=== PATIENT | male | born 1965 | race African-American/Black ===

== ENCOUNTER 2022-03-29 19:11 | Inpatient (IN) | payer OTHER ==
[2022-03-30] MEDS ORDERED: LOPERAMIDE HCL 2 MG CAPSULE PO PRN (00:03)
[2022-03-30] MEDS ORDERED: IBUPROFEN 600 MG TABLET (FP) PO PRN (00:03)
[2022-03-30] MEDS ORDERED: BENZOCAINE/MENTHOL (CHLORASEPTIC ) LOZENGE MM PRN (00:03)
[2022-03-30] MEDS ORDERED: NICOTINE POLACRILEX 2 MG GUM BUC PRN (00:03)
[2022-03-30] MEDS ORDERED: MAGNESIUM CITRATE 300 ML BOTTLE PO PRN (00:03)
[2022-03-30] MEDS ORDERED: guaiFENesin 200 MG/10 ML 10 ML UNIT-DOSE CUPS PO PRN (00:03)
[2022-03-30] MEDS ORDERED: MAGNESIUM HYDROX 2400MG/30ML ORAL SUSPENSION 30 ML CUP PO PRN (00:03)
[2022-03-30] MEDS ORDERED: DICYCLOMINE HCL 10 MG CAPSULE PO PRN (00:03)
[2022-03-30] MEDS ORDERED: BISMUTH SUBSALICYLATE 524 MG/30 ML PO PRN (00:03)
[2022-03-30] MEDS ORDERED: ACETAMINOPHEN 325 MG TABLET (FP) PO PRN ×2 (00:03)
[2022-03-30] MEDS ORDERED: ONDANSETRON *ODT* 4 MG TABLET SL PRN (00:03)
[2022-03-30] MEDS ORDERED: NALOXONE HCL (KLOXXADO) 8 MG SPRAY NS PRN (00:03)
[2022-03-30] MEDS ORDERED: P-EPHED 60MG/TRIPROLIDI 2.5MG TABLET PO PRN (00:03)
[2022-03-30] MEDS ORDERED: MAG HYDROX/AL HYDROX/SIMETH 30 ML UNIT-DOSE CUP PO PRN (00:03)
[2022-03-30] MEDS ORDERED: IBUPROFEN 400 MG TABLET (FP) PO PRN (00:03)
[2022-03-30 00:25] VITALS: BMI 24.3
[2022-03-30] MEDS ORDERED: chlordiazePOXIDE HCL 25 MG CAPSULE ONE (01:00)
[2022-03-30] MEDS: chlordiazePOXIDE HCL 25 MG CAPSULE PO PRN ×2 (01:04→13:05)
[2022-03-30] MEDS: chlordiazePOXIDE HCL 25 MG CAPSULE PO SCH ×4 (05:42→22:12)
[2022-03-30] MEDS: hydrOXYzine PAMOATE 25 MG CAPSULE (FP) PO PRN ×2 (10:19→13:04)
[2022-03-30] MEDS: NICOTINE 21 MG/24 HOURS TOPICAL PATCH TD SCH (10:19)
[2022-03-30] MEDS: PRENATAL VITAMINS W/ FOLIC ACID TABLET (FP) PO SCH (10:19)
[2022-03-30 11:07] LABS: HEMATOCRIT 37.7 % (35.4-49); HEMOGLOBIN 12.9 GM/dL (11.7-16.9); MCH 30.9 pg (25.7-33.7); MCHC 34.3 g/dl (32.0-35.9); MEAN PLT VOLUME 7.4 fl (7.5-11.1); PLATELET COUNT 272 10^3/uL (134-434); RBC 4.19 M/mm3 (4.00-5.60)
[2022-03-30 11:21] LABS: ALBUMIN 3.6 g/dl (3.4-5.0); BLOOD UREA NITROGEN 18.6 mg/dL (7-18)
[2022-03-30 11:25] LABS: BILIRUBIN,TOTAL 0.6 mg/dL (0.2-1); TOT PROT 6.4 g/dl (6.4-8.2)
[2022-03-30] MEDS ORDERED: PNEUMOC 20-VAL CONJ-DIP CRM/PF 0.5 ML SYRINGE IM ONE (12:00)
[2022-03-30] MEDS ORDERED: FLU VACC QS2022-23(6MOS UP)/PF 60 MCG/0.5 ML SYRINGE IM ONE (12:00)
[2022-03-30 12:20] LABS: HIV INTERPRETATION NEGATIVE (NEGATIVE)
[2022-03-30] MEDS ORDERED: cloNIDine HCL 0.1 MG TABLET PO ONE (12:50)
[2022-03-30] MEDS: THIAMINE HCL 100 MG TABLET (FP) PO SCH (22:12)
[2022-03-30] MEDS: MELATONIN 5 MG TABLETS PO SCH (22:12)
[2022-03-31] MEDS: chlordiazePOXIDE HCL 25 MG CAPSULE PO SCH ×4 (05:36→22:08)
[2022-03-31] MEDS: PRENATAL VITAMINS W/ FOLIC ACID TABLET (FP) PO SCH (10:03)
[2022-03-31] MEDS: NICOTINE 21 MG/24 HOURS TOPICAL PATCH TD SCH (10:04)
[2022-03-31] MEDS: hydrOXYzine PAMOATE 25 MG CAPSULE (FP) PO PRN (10:04)
[2022-03-31 18:52] LABS: PH,URINE 6.5 (5.0-8.0); URINE APPEARANCE CLEAR; URINE BILIRUBIN NEGATIVE (NEGATIVE); URINE COLOR YELLOW; URINE GLUCOSE (UA) NEGATIVE (NEGATIVE); URINE KETONE NEGATIVE (NEGATIVE); URINE LEUK ESTERASE NEGATIVE (NEGATIVE); URINE NITRITE NEGATIVE (NEGATIVE); URINE PROTEIN NEGATIVE (NEGATIVE); URINE UROBILINOGEN 0.2 mg/dL (0.2-1.0)
[2022-03-31] MEDS: MELATONIN 5 MG TABLETS PO SCH (22:08)
[2022-03-31] MEDS: THIAMINE HCL 100 MG TABLET (FP) PO SCH (22:08)
[2022-04-01] MEDS ORDERED: chlordiazePOXIDE HCL 10 MG CAPSULE PO PRN
[2022-04-01] MEDS: hydrOXYzine PAMOATE 25 MG CAPSULE (FP) PO PRN ×2 (06:14→10:32)
[2022-04-01] MEDS: chlordiazePOXIDE HCL 10 MG CAPSULE PO SCH ×4 (06:30→22:16)
[2022-04-01] MEDS: PRENATAL VITAMINS W/ FOLIC ACID TABLET (FP) PO SCH (10:32)
[2022-04-01] MEDS: METHOCARBAMOL 500 MG TABLET PO PRN (10:32)
[2022-04-01] MEDS: NICOTINE 21 MG/24 HOURS TOPICAL PATCH TD SCH (10:32)
[2022-04-01] MEDS: THIAMINE HCL 100 MG TABLET (FP) PO SCH (22:16)
[2022-04-01] MEDS: MELATONIN 5 MG TABLETS PO SCH (22:17)
[2022-04-01] MEDS ORDERED: LISINOPRIL 5 MG TABLET PO ONE (23:44)
[2022-04-02] MEDS: chlordiazePOXIDE HCL 10 MG CAPSULE PO SCH ×2 (05:56→17:31)
[2022-04-02] MEDS: NICOTINE 21 MG/24 HOURS TOPICAL PATCH TD SCH (10:23)
[2022-04-02] MEDS: PRENATAL VITAMINS W/ FOLIC ACID TABLET (FP) PO SCH (10:23)
[2022-04-02] MEDS: hydrOXYzine PAMOATE 25 MG CAPSULE (FP) PO PRN (22:17)
[2022-04-02] MEDS: THIAMINE HCL 100 MG TABLET (FP) PO SCH (22:17)
[2022-04-02] MEDS: MELATONIN 5 MG TABLETS PO SCH (22:17)
[2022-04-02] MEDS: METHOCARBAMOL 500 MG TABLET PO PRN (22:17)
[2022-04-03] MEDS ORDERED: chlordiazePOXIDE HCL 10 MG CAPSULE PO ONE (05:00)
[2022-04-03] MEDS: PRENATAL VITAMINS W/ FOLIC ACID TABLET (FP) PO SCH (10:00)
[2022-04-03] MEDS: NICOTINE 21 MG/24 HOURS TOPICAL PATCH TD SCH (10:01)
[2022-04-03 10:55] VITALS: RESP 18
[2022-04-03 12:45] VITALS: BP 151/104; PULSE 86; TEMP 98.2
== END 2022-04-03 15:21 | DRG 775 ==
LOC: YASAS 19:11 → Y3N 03-30 02:04
PROVIDERS: ADMIT Allergy & Immunology; ATTEND Allergy & Immunology
PROC: HZ2ZZZZ Detoxification Services for Substance Abuse Treatment (ICD-10-PCS; principal; 2022-03-30)
DX: F10.230 Alcohol dependence with withdrawal, uncomplicated (principal); F12.20 Cannabis dependence, uncomplicated; F17.210 Nicotine dependence, cigarettes, uncomplicated; F19.282 Other psychoactive substance dependence with psychoactive substance-induced sleep disorder; F19.24 Other psychoactive substance dependence with psychoactive substance-induced mood disorder; E78.5 Hyperlipidemia, unspecified; I10 Essential (primary) hypertension; M54.50 Low back pain, unspecified; G89.29 Other chronic pain; Z87.19 Personal history of other diseases of the digestive system
CPT/HCPCS: 36415; 80053; 81003; 85027; 86780; 87389; 87811; 90677; 93005; 93010; C9803-CS; G0008; Q2036; U0003; U0005

== ENCOUNTER 2022-04-03 15:21 | Inpatient (IN) | payer OTHER ==
[2022-04-03] MEDS ORDERED: NICOTINE POLACRILEX 4 MG GUM BUC PRN (16:04)
[2022-04-03] MEDS ORDERED: ACETAMINOPHEN 325 MG TABLET (FP) PO PRN (16:04)
[2022-04-03] MEDS ORDERED: MAGNESIUM HYDROX 2400MG/30ML ORAL SUSPENSION 30 ML CUP PO PRN (16:04)
[2022-04-03] MEDS ORDERED: LOPERAMIDE HCL 2 MG CAPSULE PO PRN (16:04)
[2022-04-03] MEDS ORDERED: guaiFENesin 200 MG/10 ML 10 ML UNIT-DOSE CUPS PO PRN (16:04)
[2022-04-03] MEDS ORDERED: MAGNESIUM CITRATE 300 ML BOTTLE PO PRN (16:04)
[2022-04-03] MEDS ORDERED: IBUPROFEN 400 MG TABLET (FP) PO PRN (16:04)
[2022-04-03] MEDS ORDERED: NICOTINE 10 MG CARTRIDGE (INHALER) IH PRN (16:04)
[2022-04-03] MEDS ORDERED: P-EPHED 60MG/TRIPROLIDI 2.5MG TABLET PO PRN (16:04)
[2022-04-03] MEDS ORDERED: MAG HYDROX/AL HYDROX/SIMETH 30 ML UNIT-DOSE CUP PO PRN (16:04)
[2022-04-03] MEDS: cloNIDine HCL 0.1 MG TABLET PO PRN (16:50)
[2022-04-03] MEDS: hydrOXYzine PAMOATE 25 MG CAPSULE (FP) PO SCH ×2 (17:50→21:46)
[2022-04-03] MEDS: THIAMINE HCL 100 MG TABLET (FP) PO SCH (21:46)
[2022-04-03] MEDS: MELATONIN 5 MG TABLETS PO SCH (21:46)
[2022-04-04] MEDS: hydrOXYzine PAMOATE 25 MG CAPSULE (FP) PO SCH ×2 (06:28→09:39)
[2022-04-04] MEDS: NICOTINE 7 MG/24 HOURS TOPICAL PATCH TD SCH (09:37)
[2022-04-04] MEDS: LISINOPRIL 5 MG TABLET PO SCH (09:38)
[2022-04-04] MEDS: PRENATAL VITAMINS W/ FOLIC ACID TABLET (FP) PO SCH (09:38)
[2022-04-04] MEDS: FAMOTIDINE 20 MG TABLET PO SCH (09:38)
[2022-04-04] MEDS: cloNIDine HCL 0.1 MG TABLET PO PRN (09:39)
[2022-04-04 16:58] LABS: URINE APPEARANCE CLEAR; URINE BILIRUBIN NEGATIVE (NEGATIVE); URINE COLOR YELLOW; URINE GLUCOSE (UA) NEGATIVE (NEGATIVE); URINE KETONE NEGATIVE (NEGATIVE); URINE LEUK ESTERASE NEGATIVE (NEGATIVE); URINE NITRITE NEGATIVE (NEGATIVE); URINE PROTEIN NEGATIVE (NEGATIVE); URINE UROBILINOGEN 0.2 mg/dL (0.2-1.0)
[2022-04-04] MEDS: MELATONIN 5 MG TABLETS PO SCH (21:26)
[2022-04-04] MEDS: THIAMINE HCL 100 MG TABLET (FP) PO SCH (21:26)
[2022-04-05] MEDS: FAMOTIDINE 20 MG TABLET PO SCH (09:55)
[2022-04-05] MEDS: NICOTINE 7 MG/24 HOURS TOPICAL PATCH TD SCH (09:56)
[2022-04-05] MEDS: PRENATAL VITAMINS W/ FOLIC ACID TABLET (FP) PO SCH (09:56)
[2022-04-05] MEDS: LISINOPRIL 5 MG TABLET PO SCH (09:56)
[2022-04-05] MEDS: MELATONIN 5 MG TABLETS PO SCH (21:22)
[2022-04-05] MEDS: THIAMINE HCL 100 MG TABLET (FP) PO SCH (21:22)
[2022-04-06] MEDS: NICOTINE 7 MG/24 HOURS TOPICAL PATCH TD SCH (09:45)
[2022-04-06] MEDS: PRENATAL VITAMINS W/ FOLIC ACID TABLET (FP) PO SCH (09:45)
[2022-04-06] MEDS: LISINOPRIL 5 MG TABLET PO SCH (09:45)
[2022-04-06] MEDS: FAMOTIDINE 20 MG TABLET PO SCH (09:45)
[2022-04-06] MEDS: cloNIDine HCL 0.1 MG TABLET PO PRN ×2 (11:59→21:46)
[2022-04-06] MEDS: hydrOXYzine PAMOATE 25 MG CAPSULE (FP) PO PRN (21:46)
[2022-04-06] MEDS: THIAMINE HCL 100 MG TABLET (FP) PO SCH (21:47)
[2022-04-06] MEDS: MELATONIN 5 MG TABLETS PO SCH (21:47)
[2022-04-07] MEDS: FAMOTIDINE 20 MG TABLET PO SCH (09:47)
[2022-04-07] MEDS: PRENATAL VITAMINS W/ FOLIC ACID TABLET (FP) PO SCH (09:47)
[2022-04-07] MEDS: LISINOPRIL 5 MG TABLET PO SCH (09:47)
[2022-04-07] MEDS: NICOTINE 7 MG/24 HOURS TOPICAL PATCH TD SCH (09:48)
[2022-04-07] MEDS: cloNIDine HCL 0.1 MG TABLET PO PRN (21:26)
[2022-04-07] MEDS: hydrOXYzine PAMOATE 25 MG CAPSULE (FP) PO PRN (21:26)
[2022-04-07] MEDS: THIAMINE HCL 100 MG TABLET (FP) PO SCH (21:26)
[2022-04-07] MEDS: MELATONIN 5 MG TABLETS PO SCH (21:27)
[2022-04-08] MEDS: NICOTINE 7 MG/24 HOURS TOPICAL PATCH TD SCH (09:35)
[2022-04-08] MEDS: FAMOTIDINE 20 MG TABLET PO SCH (09:35)
[2022-04-08] MEDS: LISINOPRIL 5 MG TABLET PO SCH (09:35)
[2022-04-08] MEDS: PRENATAL VITAMINS W/ FOLIC ACID TABLET (FP) PO SCH (09:36)
[2022-04-08] MEDS: MELATONIN 5 MG TABLETS PO SCH (21:13)
[2022-04-08] MEDS: THIAMINE HCL 100 MG TABLET (FP) PO SCH (21:13)
[2022-04-09] MEDS: NICOTINE 7 MG/24 HOURS TOPICAL PATCH TD SCH (09:46)
[2022-04-09] MEDS: FAMOTIDINE 20 MG TABLET PO SCH (09:47)
[2022-04-09] MEDS: LISINOPRIL 5 MG TABLET PO SCH (09:47)
[2022-04-09] MEDS: PRENATAL VITAMINS W/ FOLIC ACID TABLET (FP) PO SCH (09:47)
[2022-04-09] MEDS: MELATONIN 5 MG TABLETS PO SCH (21:07)
[2022-04-09] MEDS: THIAMINE HCL 100 MG TABLET (FP) PO SCH (21:07)
[2022-04-10] MEDS: LISINOPRIL 5 MG TABLET PO SCH (09:59)
[2022-04-10] MEDS: PRENATAL VITAMINS W/ FOLIC ACID TABLET (FP) PO SCH (10:00)
[2022-04-10] MEDS: NICOTINE 7 MG/24 HOURS TOPICAL PATCH TD SCH (10:00)
[2022-04-10] MEDS: FAMOTIDINE 20 MG TABLET PO SCH (10:00)
[2022-04-10] MEDS ORDERED: MELATONIN 5 MG TABLETS PO SCH (16:30)
[2022-04-10] MEDS: THIAMINE HCL 100 MG TABLET (FP) PO SCH (21:05)
[2022-04-11] MEDS: PRENATAL VITAMINS W/ FOLIC ACID TABLET (FP) PO SCH (09:39)
[2022-04-11] MEDS: FAMOTIDINE 20 MG TABLET PO SCH (09:39)
[2022-04-11] MEDS: LISINOPRIL 5 MG TABLET PO SCH (09:39)
[2022-04-11] MEDS: NICOTINE 7 MG/24 HOURS TOPICAL PATCH TD SCH (09:39)
[2022-04-11] MEDS: THIAMINE HCL 100 MG TABLET (FP) PO SCH (21:04)
[2022-04-11] MEDS: MELATONIN 5 MG TABLETS PO SCH (21:04)
[2022-04-11] MEDS: SUVOREXANT 10 MG TABLET PO PRN (21:05)
[2022-04-12] MEDS: FAMOTIDINE 20 MG TABLET PO SCH (10:05)
[2022-04-12] MEDS: LISINOPRIL 5 MG TABLET PO SCH (10:05)
[2022-04-12] MEDS: NICOTINE 7 MG/24 HOURS TOPICAL PATCH TD SCH (10:05)
[2022-04-12] MEDS: PRENATAL VITAMINS W/ FOLIC ACID TABLET (FP) PO SCH (10:05)
[2022-04-12] MEDS: THIAMINE HCL 100 MG TABLET (FP) PO SCH (21:23)
[2022-04-12] MEDS: cloNIDine HCL 0.1 MG TABLET PO PRN (21:23)
[2022-04-12] MEDS: hydrOXYzine PAMOATE 25 MG CAPSULE (FP) PO PRN (21:23)
[2022-04-12] MEDS: SUVOREXANT 10 MG TABLET PO PRN (21:24)
[2022-04-13] MEDS: FAMOTIDINE 20 MG TABLET PO SCH (09:32)
[2022-04-13] MEDS: NICOTINE 7 MG/24 HOURS TOPICAL PATCH TD SCH (09:32)
[2022-04-13] MEDS: PRENATAL VITAMINS W/ FOLIC ACID TABLET (FP) PO SCH (09:32)
[2022-04-13] MEDS: LISINOPRIL 5 MG TABLET PO SCH (09:33)
[2022-04-13] MEDS: THIAMINE HCL 100 MG TABLET (FP) PO SCH (21:28)
[2022-04-13] MEDS: SUVOREXANT 10 MG TABLET PO PRN (21:29)
[2022-04-13] MEDS: hydrOXYzine PAMOATE 25 MG CAPSULE (FP) PO PRN (21:29)
[2022-04-14] MEDS: NICOTINE 7 MG/24 HOURS TOPICAL PATCH TD SCH (09:32)
[2022-04-14] MEDS: FAMOTIDINE 20 MG TABLET PO SCH (09:33)
[2022-04-14] MEDS: PRENATAL VITAMINS W/ FOLIC ACID TABLET (FP) PO SCH (09:33)
[2022-04-14] MEDS: LISINOPRIL 5 MG TABLET PO SCH (09:33)
[2022-04-14] MEDS: THIAMINE HCL 100 MG TABLET (FP) PO SCH (21:21)
[2022-04-14] MEDS: SUVOREXANT 10 MG TABLET PO PRN (21:21)
[2022-04-14] MEDS ORDERED: SUVOREXANT 10 MG TABLET PO PRN (22:00)
[2022-04-15] MEDS: PRENATAL VITAMINS W/ FOLIC ACID TABLET (FP) PO SCH (09:41)
[2022-04-15] MEDS: LISINOPRIL 5 MG TABLET PO SCH (09:41)
[2022-04-15] MEDS: FAMOTIDINE 20 MG TABLET PO SCH (09:41)
[2022-04-15] MEDS: NICOTINE 7 MG/24 HOURS TOPICAL PATCH TD SCH (09:42)
[2022-04-15] MEDS: THIAMINE HCL 100 MG TABLET (FP) PO SCH (21:06)
[2022-04-15] MEDS: hydrOXYzine PAMOATE 25 MG CAPSULE (FP) PO PRN (21:08)
[2022-04-16] MEDS: FAMOTIDINE 20 MG TABLET PO SCH (09:36)
[2022-04-16] MEDS: PRENATAL VITAMINS W/ FOLIC ACID TABLET (FP) PO SCH (09:36)
[2022-04-16] MEDS: LISINOPRIL 5 MG TABLET PO SCH (09:36)
[2022-04-16] MEDS: NICOTINE 7 MG/24 HOURS TOPICAL PATCH TD SCH (09:36)
[2022-04-16] MEDS: hydrOXYzine PAMOATE 25 MG CAPSULE (FP) PO PRN (21:08)
[2022-04-16] MEDS: THIAMINE HCL 100 MG TABLET (FP) PO SCH (21:08)
[2022-04-17] MEDS: PRENATAL VITAMINS W/ FOLIC ACID TABLET (FP) PO SCH (09:46)
[2022-04-17] MEDS: LISINOPRIL 5 MG TABLET PO SCH (09:46)
[2022-04-17] MEDS: FAMOTIDINE 20 MG TABLET PO SCH (09:46)
[2022-04-17] MEDS: NICOTINE 7 MG/24 HOURS TOPICAL PATCH TD SCH (09:47)
[2022-04-17] MEDS: THIAMINE HCL 100 MG TABLET (FP) PO SCH (21:06)
[2022-04-17] MEDS: hydrOXYzine PAMOATE 25 MG CAPSULE (FP) PO PRN (21:06)
[2022-04-17] MEDS: SUVOREXANT 10 MG TABLET PO PRN (21:07)
[2022-04-18] MEDS: NICOTINE 7 MG/24 HOURS TOPICAL PATCH TD SCH (10:08)
[2022-04-18] MEDS: PRENATAL VITAMINS W/ FOLIC ACID TABLET (FP) PO SCH (10:09)
[2022-04-18] MEDS: LISINOPRIL 5 MG TABLET PO SCH (10:09)
[2022-04-18] MEDS: FAMOTIDINE 20 MG TABLET PO SCH (10:09)
[2022-04-18] MEDS: hydrOXYzine PAMOATE 25 MG CAPSULE (FP) PO PRN (21:09)
[2022-04-18] MEDS: SUVOREXANT 10 MG TABLET PO PRN (21:09)
[2022-04-18] MEDS: THIAMINE HCL 100 MG TABLET (FP) PO SCH (21:09)
[2022-04-19] MEDS: LISINOPRIL 5 MG TABLET PO SCH (09:40)
[2022-04-19] MEDS: NICOTINE 7 MG/24 HOURS TOPICAL PATCH TD SCH (09:40)
[2022-04-19] MEDS: PRENATAL VITAMINS W/ FOLIC ACID TABLET (FP) PO SCH (09:40)
[2022-04-19] MEDS: FAMOTIDINE 20 MG TABLET PO SCH (09:40)
[2022-04-19] MEDS ORDERED: NALTREXONE HCL 50 MG TABLET PO ONE (12:29)
[2022-04-19] MEDS: THIAMINE HCL 100 MG TABLET (FP) PO SCH (21:07)
[2022-04-19] MEDS: hydrOXYzine PAMOATE 25 MG CAPSULE (FP) PO PRN (21:07)
[2022-04-19] MEDS: SUVOREXANT 10 MG TABLET PO PRN (21:07)
[2022-04-20] MEDS: LISINOPRIL 5 MG TABLET PO SCH (09:46)
[2022-04-20] MEDS: PRENATAL VITAMINS W/ FOLIC ACID TABLET (FP) PO SCH (09:46)
[2022-04-20] MEDS: NICOTINE 7 MG/24 HOURS TOPICAL PATCH TD SCH (09:46)
[2022-04-20] MEDS: FAMOTIDINE 20 MG TABLET PO SCH (09:46)
[2022-04-20] MEDS: NALTREXONE HCL 50 MG TABLET PO SCH (09:47)
[2022-04-20] MEDS: THIAMINE HCL 100 MG TABLET (FP) PO SCH (21:43)
[2022-04-20] MEDS: hydrOXYzine PAMOATE 25 MG CAPSULE (FP) PO PRN (21:43)
[2022-04-20] MEDS: SUVOREXANT 10 MG TABLET PO PRN (21:44)
[2022-04-21] MEDS: NICOTINE 7 MG/24 HOURS TOPICAL PATCH TD SCH (10:02)
[2022-04-21] MEDS: FAMOTIDINE 20 MG TABLET PO SCH (10:02)
[2022-04-21] MEDS: LISINOPRIL 5 MG TABLET PO SCH (10:02)
[2022-04-21] MEDS: NALTREXONE HCL 50 MG TABLET PO SCH (10:02)
[2022-04-21] MEDS: PRENATAL VITAMINS W/ FOLIC ACID TABLET (FP) PO SCH (10:02)
[2022-04-21] MEDS: hydrOXYzine PAMOATE 25 MG CAPSULE (FP) PO PRN (21:11)
[2022-04-21] MEDS: THIAMINE HCL 100 MG TABLET (FP) PO SCH (21:11)
[2022-04-21] MEDS: SUVOREXANT 10 MG TABLET PO PRN (21:12)
[2022-04-22] MEDS: NICOTINE 7 MG/24 HOURS TOPICAL PATCH TD SCH (09:33)
[2022-04-22] MEDS: FAMOTIDINE 20 MG TABLET PO SCH (09:34)
[2022-04-22] MEDS: PRENATAL VITAMINS W/ FOLIC ACID TABLET (FP) PO SCH (09:34)
[2022-04-22] MEDS: NALTREXONE HCL 50 MG TABLET PO SCH (09:34)
[2022-04-22] MEDS: LISINOPRIL 5 MG TABLET PO SCH (09:34)
[2022-04-22] MEDS: hydrOXYzine PAMOATE 25 MG CAPSULE (FP) PO PRN (21:24)
[2022-04-22] MEDS: cloNIDine HCL 0.1 MG TABLET PO PRN (21:24)
[2022-04-22] MEDS: THIAMINE HCL 100 MG TABLET (FP) PO SCH (21:24)
[2022-04-22] MEDS ORDERED: SUVOREXANT 10 MG TABLET PO PRN (22:00)
[2022-04-23] MEDS ORDERED: NALTREXONE MICROSPHERES (VIVITROL) 380 MG DISP.SYRIN IM ONE (10:00)
[2022-04-23] MEDS: LISINOPRIL 5 MG TABLET PO SCH (10:32)
[2022-04-23] MEDS: PRENATAL VITAMINS W/ FOLIC ACID TABLET (FP) PO SCH (10:32)
[2022-04-23] MEDS: FAMOTIDINE 20 MG TABLET PO SCH (10:32)
[2022-04-23] MEDS: NICOTINE 7 MG/24 HOURS TOPICAL PATCH TD SCH (10:32)
[2022-04-23] MEDS: THIAMINE HCL 100 MG TABLET (FP) PO SCH (21:22)
[2022-04-23] MEDS: hydrOXYzine PAMOATE 25 MG CAPSULE (FP) PO PRN (21:24)
[2022-04-24] MEDS: FAMOTIDINE 20 MG TABLET PO SCH (09:11)
[2022-04-24] MEDS: PRENATAL VITAMINS W/ FOLIC ACID TABLET (FP) PO SCH (09:11)
[2022-04-24] MEDS: LISINOPRIL 5 MG TABLET PO SCH (09:11)
[2022-04-24] MEDS: NICOTINE 7 MG/24 HOURS TOPICAL PATCH TD SCH (09:12)
[2022-04-24 09:32] VITALS: BP 136/85; PULSE 79; RESP 18; TEMP 98.3
== END 2022-04-24 09:17 | disposition home or self-care (01) | DRG 772 ==
LOC: YASAS 15:21 → Y3E 15:22
PROVIDERS: ADMIT Allergy & Immunology; ATTEND Psychiatry & Neurology Pain Medicine
PROC: HZ42ZZZ Group Counseling for Substance Abuse Treatment, Cognitive-Behavioral (ICD-10-PCS; principal; 2022-04-03)
DX: F10.20 Alcohol dependence, uncomplicated (principal); F12.20 Cannabis dependence, uncomplicated; F17.210 Nicotine dependence, cigarettes, uncomplicated; F19.282 Other psychoactive substance dependence with psychoactive substance-induced sleep disorder; F19.24 Other psychoactive substance dependence with psychoactive substance-induced mood disorder; F41.9 Anxiety disorder, unspecified; F32.A Depression, unspecified; E78.5 Hyperlipidemia, unspecified; I10 Essential (primary) hypertension; K29.20 Alcoholic gastritis without bleeding; M54.50 Low back pain, unspecified; G89.29 Other chronic pain
CPT/HCPCS: 81003; 82962; J2315